=== PATIENT | female | born 1970 | race Hispanic/Latino ===

== ENCOUNTER 2016-09-04 10:28 | Day surgery (SDC) | payer OTHER ==
[2016-09-04] VITALS (12 sets, daily range): BP systolic 101–128; BP diastolic 62–73; PULSE 54–71; RESP 11–21; O2SAT 96–100
[~2016-09-04] VITALS: Ht 152.4 cm; Wt 58.0 kg
[~2016-09-04 10:28] MED LIST: ALBU18HF INH; FERR325T6 PO; FLUT16SP NS; IBUP800T28 PO; MULT-1018 PO
[2016-09-04] MEDS ORDERED: fentaNYL-PF 50 mCg/mL 2 mL Inj ONE (10:29)
[2016-09-04] MEDS ORDERED: Neostigmine 1 mg/mL 10 mL Inj ONE (10:29)
[2016-09-04] MEDS ORDERED: Propofol 10,000 mCg/mL 20 mL Inj ONE (10:29)
[2016-09-04] MEDS ORDERED: Ketamine 10 mg/mL 20 mL Inj ONE (10:29)
[2016-09-04] MEDS ORDERED: Ondansetron 2 mg/mL 2 mL Inj ONE (10:29)
[2016-09-04] MEDS ORDERED: Dexamethasone 4 mg/mL Inj ONE (10:29)
[2016-09-04] MEDS ORDERED: Lidocaine PF 1% 30 mL Inj ONE (10:29)
[2016-09-04] MEDS ORDERED: Rocuronium 10 mg/mL 5 mL Inj ONE (10:29)
[2016-09-04] MEDS: Lactated Ringer's 1,000 ML IV SCH ×2 (11:39→13:31)
[2016-09-04] MEDS ORDERED: Lidocaine 1%-Epi 1:100,000 20 mL Inj INJ ONE (14:13)
[2016-09-04] MEDS ORDERED: Lactated Ringer's 500 ML IV PRN (15:48)
[2016-09-04] MEDS ORDERED: Lactated Ringer's 1,000 ML IV SCH (15:48)
[2016-09-04] MEDS ORDERED: Labetalol 5 mg/mL 4 mL Inj IV PRN (15:50)
[2016-09-04] MEDS ORDERED: Dexamethasone 4 mg/mL Inj IVPUSH PRN (15:50)
[2016-09-04] MEDS ORDERED: MetoCLOpramide 5 mg/mL 2 mL Inj IVPUSH PRN (15:50)
[2016-09-04] MEDS ORDERED: Ondansetron 2 mg/mL 2 mL Inj IVPUSH PRN ×2 (15:50→15:55)
[2016-09-04] MEDS ORDERED: hydrALAZINE 20 mg/mL Inj IVPUSH PRN (15:50)
[2016-09-04] MEDS ORDERED: HYDROmorphone 1 mg/mL Inj IVPUSH PRN (15:50)
[2016-09-04] MEDS ORDERED: EPHEDrine Sulfate 50 mg/mL Inj IVPUSH PRN (15:50)
[2016-09-04] MEDS ORDERED: Phenylephrine 10,000 mCg/mL Inj IVPUSH PRN (15:50)
[2016-09-04] MEDS: fentaNYL-PF 50 mCg/mL 2 mL Inj IVPUSH PRN ×5 (15:55→17:45)
[2016-09-04] MEDS ORDERED: oxyCODONE-Acetamin 5-325 mg Tablet PO PRN (15:55)
[2016-09-04] MEDS ORDERED: Lactated Ringer's 500 ML IV ONE (16:38)
--- NOTE | 2016-09-04 18:06 | OP ---
[address] [address] OPERATIVE REPORT PATIENT: ALBERT BROWN : 1970 MR#: [id number] ADMIT: 09/04/2016 JOB ID: [id number] DATE OF SURGERY: 09/04/2016 PREOPERATIVE DIAGNOSIS(ES): A 46-year-old 2, para 2 with: 1- Longstanding history of menorrhagia: Endometrial biopsy, negative on August 25, 2016. Patient desires endometrial ablation. 2- chronic pelvic pain: History of tubal sterilization with Filshie clips in 2000. The patient desires removal of Filshie clips with bilateral salpingectomy. POSTOPERATIVE DIAGNOSIS(ES): A 46-year-old 2, para 2 with: 1- Longstanding history of menorrhagia: Endometrial biopsy, negative on August 25, 2016. Patient desires endometrial ablation. 2- chronic pelvic pain: History of tubal sterilization with Filshie clips in 2000. The patient desires removal of Filshie clips with bilateral salpingectomy. PROCEDURE: 1. Laparoscopic bilateral salpingectomy with Filshie clips confirmed to be in place on mid isthmic portions of the fallopian tubes. 2. Right hemorrhagic ovarian cyst aspiration. 3. Hysteroscopy, dilation and curettage. 4. NovaSure endometrial ablation. SURGEON: Analilia Irene MD COMPLIANCE MONITOR: Luis Schaffer MD ESTIMATED BLOOD LOSS: 30 mL. INTRAVENOUS FLUIDS: 700 mL of crystalloid. COMPLICATIONS: None. ANESTHESIA: General endotracheal. SPECIMEN: 1. Aspirated right ovarian hemorrhagic cyst fluid. 2. Bilateral fallopian tubes with Filshie clips included in the specimen. 3. Cervical curettage. 4. Endometrial curettage. COMPLICATIONS: None. FINDINGS: * Examination under anesthesia: A 10 weeks size anteverted uterus. No adnexal masses appreciated bilaterally. * Laparoscopic Findings: 1. No pelvic masses observed on laparoscopic exam. No endometriosis. No fibroids observed. Normal fallopian tubes bilaterally and smooth uterine serosal surface 2. Filshie clips observed in place on both tubes. 3. Small amount of blood in the posterior and anterior cul-de-sac. 4. Large right hemorrhagic ovarian cyst that was aspirated and the fluid was noted to be bloody, cyst resolved after aspiration. 5. Normal inferior surface of the liver. 6. No endometriosis implants observed anywhere. 7. No pelvic adhesions observed. * Hysteroscopic Findings: A small polyp observed at 9 o'clock site that was removed with curettage. *Endometrial ablation: Cervical length was 3 cm. Uterus sounded to 9 cm with calculated uterine length of 6 cm. Maximum achieved uterine width was 4.6 cm. Ablation cycle was completed in 50 seconds. Distention media for the cystoscopy was normal saline with a deficit of 150 mL at the end of the procedure. DESCRIPTION OF PROCEDURE: Risks, benefits, and alternatives of the procedure were discussed with the patient. Informed consent signed. Patient moved to the OR with IV running. After general anesthesia was found to be adequate the patient was examined under anesthesia with above findings. The patient was then prepped and draped in the normal sterile fashion and placed in the dorsal lithotomy position. The anterior lip of the cervix grasped with a single-tooth tenaculum that was affixed to a Hegar dilator with Steri-Strips and this was used for uterine manipulation purposes. Attention then was turned to the patient's abdomen where an infraumbilical incision was made with a scalpel after injecting 5 mL of 1% lidocaine with epinephrine for vasoconstriction, incision was carried down partially to the underlying subcutaneous layer. A Veress needle was introduced into the patient's abdomen and two drops of saline confirmed intra-abdominal placement. The abdomen was then insufflated with 3.6 L of carbon dioxide. The Veress needle was removed and a 5 mm trocar and sleeve was introduced into the patient's abdomen through the infraumbilical incision. Under direct visualization with the 5 mm scope, intra-abdominal placement was confirmed. Attention turned to the right lower quadrant, where a 5 mm port was introduced after injecting 2 mL of local solution to the skin. Scalpel used for 5 mm skin incision and then the 5 mm trocar and sleeve introduced under direct visualization. In a similar fashion a 3rd port was introduced into the patient's left lower quadrant. Good hemostasis assured with both port introductions into the abdominal cavity. The Filshie clips were then noted to be in place on both fallopian tubes, in the mid isthmic portion of the fallopian tubes, and the above findings were noted. The right large hemorrhagic ovarian cyst was observed. Then, with a blunt grasper and using a blunt-tipped LigaSure 5 mm device, the right fallopian tube was coagulated and cut starting from the cornual end and going through the mesosalpinx with coagulation and cutting until the fimbriated end. This released the entire right fallopian tube containing the Filshie clip. Then attention was turned to the left fallopian tube which in similar fashion was coagulated and cut gradually through the mesosalpinx until completely released, the 2nd specimen. Good hemostasis assured. Both specimens were placed in the anterior cul-de-sac. The right lower quadrant port skin incision was extended to accommodate a 10 mm trocar and sleeve, and the endobag was introduced through this right lower quadrant port, and under direct visualization both specimens were retrieved into the endobag and then removed through the right lower quadrant port. Suction irrigation confirmed hemostasis. All the blood that was found in the anterior and posterior cul-de-sac was suctioned and the suction irrigation as well confirmed hemostasis on all surfaces. This was followed by introducing a needle aspirator to the right hemorrhagic ovarian cyst and the blood was aspirated. This was followed by resolution of the ovarian cyst and the fluid was sent for cytology. All instruments were removed from patient's abdomen, the abdomen desufflated. Then, the right lower quadrant incision fascia was closed with 0- Vicryl in a continuos fashion, and skin was closed with 4-0 vicryl. Only skin layer closed in other 2 incisions that accommodated 5mm trocars. Steri-Strips applied. Attention then turned to the patient's vagina, where the Hegar dilator and the single-tooth tenaculum were removed. The cervix was measured to be 3 cm in length. This was followed by sounding the uterus to 9 cm with a calculated uterine length of 6 cm. The cervix was dilated up to Hegar dilator number 7. This was followed by introducing the MyoSure hysteroscope and under direct visualization the above findings were noted. We could not visualize the tubal ostia bilaterally. The scope was removed and cervical curettage was performed by sharp curette, followed by sharp endometrial curettage. A 2nd introduction of the scope assured removal of the endometrial polyp that was visualized at 9 o'clock position. The scope was removed and the cervix dilated to Hegar dilator # 8. NovaSure device was checked outside the patient's body and the array was noted to be intact. Then, it was introduced into the patient's uterus with the uterine length of 6 cm and while closing the array with the recommended movements by the monotype machinist a maximum achieved width was 4.6 cm. The device was enabled. Cavity check was completed successfully. This was followed by completion of the ablation cycle in 50 seconds. The device was removed after closing the array. The array was reopened outside the patient's body and was noted to be still intact. A 2nd look with the hysteroscope confirmed adequate ablation of the entire uterine cavity. All instruments removed from patient's vagina. There was a small amount of bleeding at the single-tooth tenaculum insertion site that was controlled with Monsel solution. Good hemostasis assured. The patient tolerated the procedure well. Sponge, lap, needle, and instrument counts were correct x2. The patient was recovered in a stable condition. Dr. Irene was present and scrubbed for the entire procedure. YOGI
--- NOTE | 2016-09-04 22:49 | PCM.HPANE ---
Patient Data Date of Service: Sep 04, 2016 Surgeon Admitting Provider: Attending Provider:Analilia Irene MD Primary Care Physician:Sandra Ogden Other Provider:Milena Rosa Anesthesia Reason for Visit Menorrhagia, Pelvic Pain, Fibroid Uterus Ht/WT & BMI Height (Feet): 5 Height (Inches): 0 Weight (Kilograms): 58 Body Mass Index 25.00 Allergies Coded Allergies: Penicillins (Verified Allergy, Unknown, rash, 09/04/16) Past Anesthesia History Anesthesia History: Denies:: Anesthesia Reactions Diabetes History Hx Diabetes?: No Medications Home Meds Incl Beta Yumiko: No Reported Medications Multivitamin (Multi Vitamin Daily)1 Each Tablet1 Each PO DAILY 30 Days Ref 0 09/02/16 Ferrous Sulfate 325 Mg Tablet.dr325 Mg PO DAILY 30 Days Ref 0 09/02/16 Ibuprofen 800 Mg [id number] Mg PO TID PRN For Pain Ref 0 09/02/16 Albuterol Sulfate (Ventolin HFA Inhaler)200 Puff/18 Gm Inhaler2 Puff INH Q4 PRN For Wheezing #1 INHALER Ref 0 09/02/16 Fluticasone Propionate (Fluticasone Propionate Nasal)16 Gm Macon.susp2 [place] NS BID #16 GM Ref 0 09/02/16 History History of ENT Problems?: No Hx of Heart Problems?: No Hx of Respiratory Problem?: Yes Respiratory History: Positive for:: Asthma Use of Inhalers / NEBS Denies:: Oxygen Administration Use of C-PAP Machine Hx Neurologic Problems?: No Hx of GI Problems?: No Hx of Problems?: No Female Hx: Denies:: Currently Problems with Breasts? Hx Musculoskeletal Problems?: No Hx of Psycho/Social Problems?: No Hx Surgeries?: Yes (tubal, left ovarian cystectomy) Hx Any Other Health Problems?: Yes Other History: Denies:: Cancer Thyroid Disease Hx Diabetes: No Hx Alcohol Use: NoHx Substance Use: NoHave You Smoked inLast 12 mo: No Stop/Bang Treated for Sleep Apnea?: No Do You Have a CPAP Machine?: No S-Snoring: Do You Snore Loudly: No T-Tired: feel tired, fatigued: No O-Obsered: Observed not breath: No P-Blood Pressure: treated: No B- Body Mass Index > 35 kg/m2: No A- Age over 50: No N- Neck Large Circumference: No G- Gender Male: No JOSE Risk Assessment: Low Risk, <3 Yes Risk Assessment Category Category 1A: Patient has history of documented sleep apnea, and HAS NOT received any narcotic, sedative or anesthesia administration during this stay. Category 1B: Patient has history of documented sleep apnea, and HAS received any narcotic , sedative or anesthesia administration during this stay Category 2: Patient has SUSPECTED Obstructive Sleep Apnea, and HAS received any narcotic , sedative or anesthesia administration during this stay. Category 3: Patient has SUSPECTED Obstructive Sleep Apnea and HAS NOT received narcotic, sedative or anesthesia administration during this stay. Category 4: Outpatient in Procedural Areas with known sleep apnea or who screen positive for High Risk via the STOP/BANG questionnaire. Exam Exam Vital Signs Vital Signs Date Time Temp Pulse Resp B/P Pulse Ox O2 Delivery O2 Flow Rate FiO2 09/04/16 17:56 71 16 101/65 96 Room Air 09/04/16 17:45 58 12 113/64 100 Nasal Cannula 2 09/04/16 17:00 58 12 110/66 99 Nasal Cannula 2 09/04/16 16:45 57 12 108/68 99 Nasal Cannula 2 09/04/16 16:20 55 12 114/63 98 Nasal Cannula 2 09/04/16 16:10 55 21 128/73 99 Room Air 09/04/16 16:05 54 20 127/65 100 Simple Mask 8 09/04/16 16:00 54 11 124/66 100 Simple Mask 8 09/04/16 15:55 54 11 123/67 100 Simple Mask 8 09/04/16 15:50 55 12 122/64 100 Simple Mask 8 09/04/16 15:45 36.0 58 14 117/62 100 Simple Mask 8 General Appearance: Alert, Oriented X3, Cooperative, No Acute Distress HEENT/AIRWAY: MP 3, Other (braces) Lungs: Clear to Auscultation, Normal Air Movement Heart: Exam Unremarkable, Regular Rate/Rhythm, No Murmurs/Rubs/Gallops Meds/Labs/Diagnostics Admission Meds Current Medications Lactated Ringer's (Lr) 1,000 ml @ 120 mls/hr Q8H20M IV Last administered on t 13:31; Start 09/04/16 at 05:00; Stop 09/04/16 at 13:19; Status DC Lidocaine/ Epinephrine 20 ml 20 ml STK-MED ONCE INJ Last administered on 14:13; Start 09/04/16 at 14:13; Stop 09/04/16 at 14:19; Status DC Lactated Ringer's (Lr) 500 ml @ ud STK-MED ONCE IV Last administered on 16:38; Start 09/04/16 at 16:38; Stop 09/04/16 at 16:40; Status DC Ondansetron HCl (Zofran ODT) 4 mg STK-MED ONCE .ROUTE Last administered on 19:27; Start 09/04/16 at 19:25; Stop 09/04/16 at 19:26; Status DC Plan Impression Patient chart reviewed, patient interviewed and anesthestic plan with risks, benefits, and alternatives discussed, and informed consent obtained. ASA Physical Status: ASA2 Mod Systemic Disease Anesthetic Plan: GA Bene/Risks/Altern/Consents: Yes HP Complete Prior to Induction: Yes (Pt was seen and evaluated prior to procedure. Note was entered late.) Fernie Kincaid MD Sep 04, 2016 22:49
--- NOTE | 2016-09-04 22:51 | PCM.ANEP1 ---
Post Anesthesia Phase 1 PACU Phase 1 Assessment Date of Service: Sep 04, 2016 Vital Signs Vital Signs Date Time Temp Pulse Resp B/P Pulse Ox O2 Delivery O2 Flow Rate FiO2 09/04/16 17:56 71 16 101/65 96 Room Air 09/04/16 17:45 58 12 113/64 100 Nasal Cannula 2 09/04/16 17:00 58 12 110/66 99 Nasal Cannula 2 09/04/16 16:45 57 12 108/68 99 Nasal Cannula 2 09/04/16 16:20 55 12 114/63 98 Nasal Cannula 2 09/04/16 16:10 55 21 128/73 99 Room Air 09/04/16 16:05 54 20 127/65 100 Simple Mask 8 09/04/16 16:00 54 11 124/66 100 Simple Mask 8 09/04/16 15:55 54 11 123/67 100 Simple Mask 8 09/04/16 15:50 55 12 122/64 100 Simple Mask 8 09/04/16 15:45 36.0 58 14 117/62 100 Simple Mask 8 Anesthetic Administered: GA Level of Alertness: Sleepy, easy to arouse Pain: No Nausea or Vomiting: No Oxygen Delivery: Simple Mask Lungs: Clear to Auscultation, Normal Air Movement Fernie Kincaid MD Sep 04, 2016 22:51
--- NOTE | 2016-09-04 22:51 | PCM.ANEP2 ---
Post Anesthesia Evaluation ASA/CMS Post Anesthesia VS in Patient's Normal Range?: Yes Resp Stable; Airway Patent?: Yes CV Function & Hydration Stable: Yes Mental Status Recovered?: Yes Pain control Satisfactory?: Yes N/V Control Satisfactory?: Yes Fernie Kincaid MD Sep 04, 2016 22:51
--- NOTE | 2016-09-08 15:15 | PATH ---
SURGICAL PATHOLOGY Attending Physician:Analilia Irene MD CASE STATUS: Signed Out PATIENT NAME: VISHNU BROWN PID: [id number] : 1970 DATE COLLECTED:09/04/2016 00:00 SPECIMEN: 1: Fallopian Tube, Biopsy 2: Endocervix, Curettage 3: Endometrium, Curettage CLINICAL HISTORY: CHRONIC PELVIC PAIN 1). RIGHT AND LEFT FALLOPIAN TUBES AND FILSHIE CLIP 2). ENDOCERVICAL CURETTINGS 3). ENDOMETRIAL CURETTINGS FINAL DIAGNOSIS: 1.RIGHT AND LEFT FALLOPIAN TUBES: HYDATID CYSTS OF MORGAGNI. NO EVIDENCE OF MALIGNANCY. NO SIGNIFICANT INFLAMMATION IDENTIFIED. 2.ENDOCERVICAL CURETTINGS: NO EVIDENCE OF INVASIVE NEOPLASM OR DYSPLASIA. 3.ENDOMETRIAL CURETTINGS: EARLY SECRETORY ENDOMETRIUM. NO EVIDENCE OF MALIGNANCY OR HYPERPLASIA. ICD10 CODE R10.2 GROSS DESCRIPTION: The specimens are received in formalin, labeled with the patient's name, and sublabeled as the following: (1) right & left fallopian tube; (2) endocervical curettings; (3) endometrial curettings. (1) The specimen consists of 2 fimbriated fallopian tubes (tube #1: length-4.5 cm, diameter-0.6 cm, tube #2: length-4.5 cm, diameter-0.6 cm). A Filshie clip is identified adjacent to each fallopian tube resection margin. The serosa is valle purple smooth and shiny with multiple paratubal cysts (0.9 x 0.9 x 0.5 cm-2.1 x 1.3 x 1.3 cm) containing clear colorless fluid. The lumens are ceron and unremarkable. No nodules, masses or lesions are identified. Section code: (1A) fallopian tube #1, serially sectioned, compliance representative; (1B) fimbria #1, bivalved, entirely submitted; (1C) fallopian tube #2, serially sectioned, compliance representative; (1D) fimbria #2, bivalved, entirely submitted. (2) The specimen consists of multiple fragments of ceron-white hemorrhagic and semi-translucent tissue (2.0 x 2.0 x 0.1 cm in aggregate). Section code: (2A) tissue fragments. Specimen entirely submitted. (3) The specimen consists of multiple fragments of ceron-white hemorrhagic rubbery semitranslucent tissue (3.0 x 2.5 x 0.4 cm in aggregate). Section code: (3A) tissue fragments. Specimen entirely submitted. Note: Per the requisition a fourth specimen was submitted for cytological analysis and consisted of aspirated fluid from right ovarian cyst. 09/06/16 JM MICRO DESCRIPTION: See diagnosis. ICD-9 CODES: CPT CODES: 2: 45555 3: 65764, 65554 Electronically Signed Out Timothy Hernandez MD [facility] [address], [place] [address] Technical component performed at [facility], [facility] [address], [place], [address]
--- NOTE | 2016-09-08 15:37 | PATH ---
SURGICAL PATHOLOGY Attending Physician:Analilia Irene MD CASE STATUS: Signed Out PATIENT NAME: VISHNU BROWN PID: [id number] : 1970 DATE COLLECTED:09/04/2016 00:00 SPECIMEN: Right Ovarian Cyst Fluid Thin Prep CLINICAL HISTORY: [id number] Right Ovarian Cyst Fluid No ICD-10 code given FINAL DIAGNOSIS: RIGHT OVARIAN CYST FLUID (ONE THINPREP SLIDE AND ONE CELL BLOCK): NEGATIVE FOR MALIGNANT CELLS. ICD10 CODE N83.2 GROSS DESCRIPTION: Received fresh on 09/05/26 is approximately 5 cc cloudy pink fluid. Prepared are one cell block and one ThinPrep slide. Vo/hk ICD-9 CODES: CPT CODES: 1: 75692, 19955 Electronically Signed Out Timothy Hernandez MD [facility] [address], [place] [address] Technical component performed at [facility], [address], [place], [address]
== END 2016-09-04 23:59 | disposition home or self-care (01) ==
LOC: SAS 10:28
PROVIDERS: ATTEND Obstetrics & Gynecology
DX: N92.0 Excessive and frequent menstruation with regular cycle (principal); N83.201 Unspecified ovarian cyst, right side; R10.2 Pelvic and perineal pain; Z30.2 Encounter for sterilization; J45.909 Unspecified asthma, uncomplicated
CPT/HCPCS: 58563; 58661; J1100; J1170; J2250; J2405; J2710; J2765; J3010; J7120